=== PATIENT | male | born 1940 | race Caucasian/White ===

== ENCOUNTER 2023-03-04 16:01 | Emergency (ER) | payer MEDICARE, BC, SELFPAY ==
[2023-03-04 16:05] VITALS: BP 158/80; PULSE 65; RESP 18; TEMP 37.1; O2SAT 95; BMI 30.8
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
[2023-03-04] MEDS: ADACEL DIPH,PERTUSS(ACELL),TET VAC/PF 0.5 ML ADULT SYRINGE IM (17:26)
[2023-03-04] MEDS: SILVER SULFADIAZINE 1% CREAM 25 GM TUBE 1 APPLIC TOPICAL (17:29)
== END 2023-03-04 17:36 | disposition home or self-care (01) ==
PROVIDERS: Emergency Provider Emergency Medicine; PCP Family Medicine
DX: T23.202A Burn of second degree of left hand, unspecified site, initial encounter (principal); T31.11 Burns involving 10-19% of body surface with 10-19% third degree burns; X08.8XXA Exposure to other specified smoke, fire and flames, initial encounter; Z23 Encounter for immunization; Z79.899 Other long term (current) drug therapy
CPT/HCPCS: 90471; 90715; 99284